=== PATIENT | male | born 1985 | race Two or more races ===

== ENCOUNTER → 2024-05-15 | Outpatient (CLI) | payer OTHER, SELFPAY ==
--- NOTE | 2024-05-15 10:30 | XR_ITS ---
Examination: CT soft tissue neck, with intravenous contrast. 2-D coronal reconstructions. 2-D sagittal reconstructions. Date and time of exam :May 15, 2024 1045 hours INDICATIONS: Palpable enlarged lymph nodes in the neck bilaterally noticed beginning 2 years ago. CTDI: vol (mGy):16.9 DLP: (mGycm):540 Technique: 1.25 mm axial sections of the neck of the obtained. Coronal and sagittal reconstructions have been obtained. Intravenous contrast administered 50 cc Isovue-370. Low dose protocols were performed. One or more of the following dose reduction techniques were used; automated exposure control, adjustment of the mA and/or KV according to patient size, use of iterative reconstruction technique. Findings: Bilateral carotid triangle lymph nodes, the largest on the left side 12 mm on the right side 12 mm Subcentimeter submental lymph nodes Symmetrical nasopharynx oropharynx The larynx appears normal Thyroid lobes are not enlarged No encroachment upon the subglottic region Epiglottis is not thickened Satisfactory alignment cervical vertebral bodies IMPRESSION: Bilateral carotid triangle lymphadenopathy as above Consider 3-6 month follow-up CT soft tissue neck with contrast
== END | disposition home or self-care (01) ==
PROVIDERS: PCP Physician Assistant; Referring Provider Physician Assistant; Visit Provider Physician Assistant
DX: R59.1 Generalized enlarged lymph nodes (principal)
CPT/HCPCS: 70491; A4649; Q9967

== ENCOUNTER → 2024-11-07 | Outpatient (CLI) | payer OTHER, SELFPAY ==
--- NOTE | 2024-11-07 14:30 | XR_ITS ---
Examination: CT soft tissue neck, with intravenous contrast. 2-D coronal reconstructions. 2-D sagittal reconstructions. Date and time of exam :November 07, 2024 1507 hours INDICATIONS: Left-sided neck lump 2 years, bilateral carotid triangle lymph nodes, the largest on the left side 12 mm on the right side [address] soft tissue neck May 15, 2024. CTDI: vol (mGy):21.2 DLP: (mGycm):682 Technique: 1.25 mm axial sections of the neck of the obtained. Coronal and sagittal reconstructions have been obtained. Intravenous contrast administered 50 cc Isovue-370. Low dose protocols were performed. One or more of the following dose reduction techniques were used; automated exposure control, adjustment of the mA and/or KV according to patient size, use of iterative reconstruction technique. Findings: Symmetrical nasopharynx oropharynx Stable carotid triangle lymph nodes, the largest on the left side 12 mm on the right side 8 mm Subcentimeter submental lymph nodes The larynx appears normal Thyroid lobes are not enlarged Symmetrical parotid glands and submandibular glands Normal epiglottis Lung apices clear IMPRESSION: Stable carotid triangle lymphadenopathy
== END | disposition home or self-care (01) ==
LOC: CCTX 14:44
PROVIDERS: PCP Physician Assistant; Referring Provider Physician Assistant; Visit Provider Physician Assistant
DX: R59.0 Localized enlarged lymph nodes (principal)
CPT/HCPCS: 70491; A4649; Q9967